=== PATIENT | male | born 1950 | race Asian ===

== ENCOUNTER 2023-11-04 09:08 | Emergency (ER) | payer OTHER ==
[~2023-11-04] VITALS: Ht 167.6 cm; Wt 63.5 kg
[2023-11-04] MEDS ORDERED: KETOROLAC TROMETHAMINE 60 MG VIAL IM ONE (10:00)
[2023-11-04 10:33] LABS: MEAN CELL VOLUME 86.9 fL (80.0-100.00); MEAN CORPUSCULAR HEMOGLOBIN 30.1 pg (27.00-32.0); MEAN CORPUSCULAR HGB CONC 34.7 g/dl (32.0-36.0); PLATELET COUNT 272 K/uL (150-450); RED BLOOD COUNT 5.29 M/uL (4.00-6.00); RED CELL DISTRIBUTION WIDTH 12.8 % (11.5-14.5)
[2023-11-04 10:41] LABS: ERYTHROCYTE SEDIMENTATION RATE 22 mm/hr
[2023-11-04 11:10] LABS: ALBUMIN 3.6 gm/dL (3.4-5.0); BILIRUBIN TOTAL 1.01 mg/dL (0.3-1.2); CALCIUM 9.5 mg/dL (8.5-10.1); CREATININE SERUM 0.98 mg/dL (0.70-1.30); GFR 75.18; GLOBULINA 4.9 G/DL (2.4-3.5); POTASSIUM 5.04 mEq/L (3.5-5.1); TOTAL PROTEIN 8.5 gm/dL (6.4-8.2); URIC ACID 6.1 mg/dL (3.5-8.5)
[2023-11-04 11:14] LABS: C-REACTIVE PROTEIN 5.75 MG/DL (0.00-0.29)
[2023-11-04] MEDS ORDERED: CLEOCIN HCL300 MG PO (11:35)
[2023-11-04] MEDS ORDERED: CLINDAMYCIN PHOSPHATE 150 MG/ML (300mg) IM ONE (11:45)
== END 2023-11-04 11:49 | disposition home or self-care (01) ==
LOC: ER 09:09
PROVIDERS: General Practice
DX: L03.90 Cellulitis, unspecified (principal); I10 Essential (primary) hypertension; Z88.0 Allergy status to penicillin
CPT/HCPCS: 36415; 73630; 96372; 99283; J1885; J3490